=== PATIENT | female | born 1990 | race Caucasian/White ===

== ENCOUNTER 2016-10-03 00:29 | Emergency (ER) | payer MEDICAID ==
[~2016-10-03] VITALS: Ht 152.4 cm; Wt 50.5 kg
[2016-10-03 00:35] VITALS: Ht 152.4 cm; Wt 50.5 kg
[2016-10-03 02:15] LABS: URINE BLOOD (Dip) POC Negative (NEGATIVE)
--- NOTE | 2016-10-03 03:50 | RADRPT ---
PROCEDURE: ULTRASOUND PELVIS CLINICAL INDICATION: 25-year-old female with pelvic pain. TECHNIQUE: Multiple sonographic images of the pelvis were obtained utilizing a transabdominal and endovaginal technique. The images were reviewed on a PACS workstation. COMPARISON: None. FINDINGS: The uterus is visualized and measures 8.6 x 4.4 x 5.1 cm. The endometrial echo complex is thickened and heterogeneous measuring 22.4 mm. There is no evidence for free fluid. The right ovary has a norm al echotexture and measures 3.3 x 1.4 x 2.1 cm. The left ovary has a normal echotexture and measure s 3.5 x 2.3 x 2.6 cm. There is a left ovarian hemorrhagic cyst measuring 2.2 x 1.7 x 2.1 cm. There is flow identified within the ovaries bilaterally. No adnexal masses are noted. IMPRESSION: 1. Thickened heterogeneous endometrial echo complex. No sonographic evidence for an intrauterine g estation. If the patient has a positive test, an ectopic cannot be excluded. C linical correlation is necessary. 2. Left ovarian hemorrhagic cyst. .Toni Mendez MD, Date Time Electronically viewed and signed by .Toni Mendez MD, on 10/03/2016 03:49 .M/
--- NOTE | 2016-10-03 04:19 | RADRPT ---
PROCEDURE: ABDOMINAL - 3 VIEWS CLINICAL INDICATION: 25-year-old female with left-sided abdominal pain and constipation. TECHNIQUE: AP supine and upright views of the abdomen were obtained. The images reviewed on a LookStat workstation. COMPARISON: None. FINDINGS: The lung bases are unremarkable. There is no free air beneath the hemidiaphragms. There is air iden tified throughout the bowel. There is mild retained stool is seen within the colon. There is no ev idence for gross bowel obstruction. There are no abnormal calcifications overlying the urinary tract s. The osseous structures are unremarkable. IMPRESSION: Retained stool without gross bowel obstruction. .Toni Mendez MD, MD Date Time Electronically viewed and signed by .Toni Mendez MD, on 10/03/2016 04:18 .Yulissa/
[2016-10-03] MEDS ORDERED: NAPR-688 PO (04:47)
[2016-10-03] MEDS ORDERED: POLY17PO6 PO (04:47)
--- NOTE | 2016-10-03 04:54 | ERD ---
ER Documentation Chief Complaint Date/Time DATE: 10/03/16 TIME: 04:52 Chief Complaint lower abd pain x 1 week HPI This 25-year-old female presents with left lower quadrant abdominal pain for 1 week. She has had no dysuria or abnormal vaginal bleeding. She has had no fevers or chills. She is constipated. Otherwise healthy ROS All systems reviewed and are negative except as per history of present illness. Medications Home Meds Active Scripts Polyethylene Glycol* (Miralax*) 17 Gm Powd.pack, 17 GM PO DAILY, #7 Prov:CUCO CORTES DO 10/03/16 Naproxen* (Naproxen*) 500 Mg Tablet, 500 MG PO BID Y for PAIN, #20 TAB Prov:CUCO CORTES DO 10/03/16 Allergies Allergies: Coded Allergies: Penicillins (Verified Allergy, Unknown, 10/03/16) PMhx/Soc Medical and Surgical Hx: pt denies Medical Hx History of Surgery: Yes (appendectomy 2015) Anesthesia Reaction: No Hx Alcohol Use: No Hx Substance Use: No Hx Tobacco Use: No Smoking Status: Unknown if ever smoked Physical Exam Vitals Vital Signs Date Time Temp Pulse Resp B/P Pulse Ox O2 Delivery O2 Flow Rate FiO2 10/03/16 03:03 59 16 114/67 100 Room Air 10/03/16 00:35 98.6 69 20 115/56 98 Physical Exam Const: [] No distress Head: Atraumatic Eyes: Normal Conjunctiva Abd: Soft, mild left lower quadrant tenderness without guarding or rebound, non distended. Normal bowel sounds Skin: No petechiae or rashes Back: No midline or flank tenderness Ext: No cyanosis, or edema Neur: Awake and alert Psych: Normal Mood and Affect Results 24 hrs Laboratory Tests Test 10/03/16 02:17 Bedside Urine pH (LAB) 5.5 Bedside Urine Protein (LAB) Negative Bedside Urine Glucose (UA) Negative Bedside Urine Ketones (LAB) Negative Bedside Urine Blood Negative Bedside Urine Nitrite (LAB) Negative Bedside Urine Leukocyte Esterase (L Negative Procedures/MDM Left ovarian cysts as well as constipation. I have low concern for serious infectious process. Patient has negative urinalysis and is not . Does have hemorrhagic ovarian cyst on ultrasound as well as constipation confirmed with abdominal x-ray. Going to discharge with MiraLAX as well as naproxen and gynecological follow-up. She was given IM injection of Toradol emergency room which helped with her pain. Abdominal x-ray interpretation 2 view: I see no acute process. There is mild to moderate retained stool especially in the right colon and some stool left colon and transverse however I see no obstruction, no free air, no fractures Pelvic ultrasound interpretation: Left hemorrhagic ovarian cyst. Departure Diagnosis: Primary Impression: Constipation Additional Impression: Ovarian cyst, left Condition: Stable Patient Instructions: What Are Ovarian Cysts?, Constipation (Adult) Additional Instructions: Llame al doctor MAANA y gildardo ligia WILBER PARA DENTRO DE 2-3 [place].Dgale a la secretaria que nosotros le instruimos hacer esta wilber.Avise o llame si wagner condicin se empeora antes de la wilber. Regresa aqui si peor o no mejor. CUCO CORTES DO Oct 03, 2016 04:54
[2016-10-03 05:05] VITALS: BP 109/79; PULSE 77; RESP 18
== END 2016-10-03 05:06 | disposition home or self-care (01) ==
LOC: E/R 00:29
DX: K59.00 Constipation, unspecified (principal); N83.202 Unspecified ovarian cyst, left side; R10.2 Pelvic and perineal pain
CPT/HCPCS: 74010; 76830; 76856; 81003; Z7502

== ENCOUNTER 2018-04-17 10:05 | Emergency (ER) | payer MEDICAID ==
[~2018-04-17] VITALS: Ht 165.1 cm; Wt 54.2 kg
[~2018-04-17 10:05] MED LIST: NAPR-688 PO; POLY17PO6 PO
[2018-04-17 10:14] VITALS: Ht 165.1 cm; Wt 54.2 kg
--- NOTE | 2018-04-17 11:01 | ERD ---
ER Documentation Chief Complaint Chief Complaint Complains of abdominal pain and 8 weeks HPI 27-year-old female at EGA 6 weeks by first trimester ultrasound, with LMP 02/18/18. Presents to the emergency department, complaining of 1 day with acute onset of pelvic pain, constant, dull, 5/10. The patient denies any vaginal bleeding, no fever, no chills. The patient has a history of appendectomy. ROS All systems reviewed and are negative except as per history of present illness. Medications Home Meds Active Scripts Polyethylene Glycol* (Miralax*) 17 Gm Powd.pack, 17 GM PO DAILY, #7 Prov:CUCO CORTES DO 10/03/16 Naproxen* (Naproxen*) 500 Mg Tablet, 500 MG PO BID PRN for PAIN, #20 TAB Prov:CUCO CORTES DO 10/03/16 Allergies Allergies: Coded Allergies: Penicillins (Verified Allergy, Unknown, 10/03/16) PMhx/Soc History of Surgery: Yes (appendectomy 2014) Anesthesia Reaction: No Hx Alcohol Use: No Hx Substance Use: No Hx Tobacco Use: No Smoking Status: Never smoker Physical Exam Vitals Vital Signs Date Temp Pulse Resp B/P (MAP) Pulse Ox O2 O2 Flow FiO2 Time Delivery Rate 04/17/18 98.0 65 20 113/57 97 10:14 (75) Physical Exam Const: No acute distress Head: Atraumatic Eyes: Normal Conjunctiva ENT: Normal External Ears, Nose and Mouth. Neck: Full range of motion. No meningismus. Resp: Clear to auscultation bilaterally Cardio: Regular rate and rhythm, no murmurs Abd: Soft, non tender, non distended. Normal bowel sounds Skin: No petechiae or rashes Back: No midline or flank tenderness Ext: No cyanosis, or edema Neur: Awake and alert Psych: Normal Mood and Affect Result Diagram: 04/17/18 1118 Results 24 hrs Laboratory Tests Test 04/17/18 11:16 04/17/18 11:17 04/17/18 11:18 Bedside Urine pH (LAB) 8.0 Bedside Urine Protein (LAB) Negative Bedside Urine Glucose (UA) Negative Bedside Urine Ketones (LAB) Negative Bedside Urine Blood Negative Bedside Urine Nitrite (LAB) Negative Bedside Urine Leukocyte Esterase (L Negative POC Beta HCG, Qualitative POSITIVE White Blood Count 9.8 10^3/ul Red Blood Count 4.37 10^6/ul Hemoglobin 13.3 g/dl Hematocrit 39.2 % Mean Corpuscular Volume 89.7 fl Mean Corpuscular Hemoglobin 30.4 pg Mean Corpuscular Hemoglobin Concent 33.9 g/dl Red Cell Distribution Width 12.1 % Platelet Count 328 10^3/UL Mean Platelet Volume 9.9 fl Immature Granulocytes % 0.400 % Neutrophils % 65.2 % Lymphocytes % 25.5 % Monocytes % 8.0 % Eosinophils % 0.5 % Basophils % 0.4 % Nucleated Red Blood Cells % 0.0 /100WBC Immature Granulocytes # 0.040 10^3/ul Neutrophils # 6.4 10^3/ul Lymphocytes # 2.5 10^3/ul Monocytes # 0.8 10^3/ul Eosinophils # 0.1 10^3/ul Basophils # 0.0 10^3/ul Nucleated Red Blood Cells # 0.0 10^3/ul Current Medications Medications Dose Sig/Nathan Start Time Status Last (Trade) Ordered Route PRN Stop Time Admin Dose Reason Admin 650 mg ONCE ONCE 04/17/18 DC 04/17/18 Acetaminophen PO 11:30 04/17/18 11:18 (Tylenol 11:31 Tab) DIAGNOSTIC IMAGING REPORT Patient: KHANG VICK : 1990 Age: 27 Sex: F MR #: [id number] DOS: 04/17/18 1101 Ordering MD: FRANCHESCA SOTO MD Location: [facility] Room/Bed: PROCEDURE: US OB. CLINICAL INDICATION: Pelvic pain TECHNIQUE: Transabdominal views of the pelvis are available for review. COMPARISON: No prior studies are available for comparison. FINDINGS: There is a single intrauterine gestation with the crown-rump length measuring 1.0 cm, corresponding to a gestational age of 7 weeks and 1 day. The heart rate is noted at 173 bpm. The ovaries are normal in size and echogenicity. Normal Doppler flow is identified in both ovaries. The right ovary measures 3.3 x 2.3 cm. The left ovary measures 3.7 x 2.8 x 3.4 cm. There is a 2.2 cm simple cyst in the left ovary. There is no free fluid. RPTAT: AA IMPRESSION: Single live intrauterine with an estimated gestational age of 7 weeks and 1 day, based on ultrasound measurements. .Qamar Mendoza MD, Date Time Electronically viewed and signed by .Qamar Mendoza MD, MD on 04/17/2018 12:14 .S/ CC: FRANCHESCA SOTO MD [id number] Procedures/MDM Vital signs stable, Physical exam unremarkable. Differential diagnosis include but not limited to: UTI, threatening , incomplete versus complete , ectopic , physiologic implantation bleeding, molar . Physical examination and clinical presentation most likely consistent with pelvic pain during a viable 7 weeks . Low suspicion for acute abdomen During the ED course the patient remained hemodynamically stable and asymptomatic. Results and clinical impression discussed with patient who agrees with management. The patient is stable to be treated outpatient and will be discharged home with close monitoring and follow-up in 2 days with her primary physician. The patient was instructed regarding the outcomes and the potential complications like severe bleeding and . If the patient presents severe bleeding or pain, she was instructed to return to the hospital immediately. Disclaimer: Inadvertent spelling and grammatical errors are likely due to EHR/dictation software use and do not reflect on the overall quality of patient care. Also, please note that the electronic time recorded on this note does not necessarily reflect the actual time of the patient encounter. Departure Diagnosis: Primary Impression: Pelvic pain affecting in first trimester, antepartum Additional Impression: with 7 completed weeks gestation Condition: Stable Additional Instructions: Muchas wilner por [facility] para wagner servicio. Esperamos que en wagner visita a la natalio de emergencia wagner problema medico haya sido solucionado y que se sienta mucho mejor. Para estar seguros que wagner mejoria sigue en proceso, le pedimos el favor de hacer ligia josé luis de seguimiento medico con wagner doctor primario en los proximos 2-4 blair. Lleve con usted estos documentos y las medicinas recetadas. Si alexa sintomas empeoran, NO SE ESPERE, por favor regrese a natalio de emergencia INMEDIATAMENTE. En ursula que usted no tenga un mdico de atencin primaria: Llame al mdico o clnica comunitaria de referencia que aparece abajo fabiola las horas de consultorio para hacer ligia josé luis para que le vean. CLINICAS: [facility] [phone] [facility] [phone] [facility] [phone] [facility] [phone] [facility] [phone] [facility]. [phone] FRANCHESCA WISDOM MD Apr 17, 2018 11:01
[2018-04-17] MEDS ORDERED: ACETAMINOPHEN 325 MG TAB PO ONE (11:30)
== END 2018-04-17 12:47 | disposition home or self-care (01) ==
LOC: FTE 10:05
DX: O26.891 Other specified pregnancy related conditions, first trimester (principal); R10.2 Pelvic and perineal pain; Z3A.01 Less than 8 weeks gestation of pregnancy
CPT/HCPCS: 76801; 76817; 81003; 81025; 84702; 85025; Z7502; Z7610

== ENCOUNTER 2018-06-13 01:40 | Emergency (ER) | payer MEDICAID ==
[~2018-06-13] VITALS: Wt 53.2 kg
[2018-06-13] MEDS ORDERED: SOD CHLORIDE 0.9% 1,000 ML IV STA (02:17)
[2018-06-13] MEDS ORDERED: ACET500C5 PO (05:05)
[2018-06-13 05:14] VITALS: BP 114/59; PULSE 98; RESP 16
--- NOTE | 2018-06-13 05:14 | ERD ---
ER Documentation Chief Complaint Chief Complaint CP, SOB, WEAKNESS, AP SINCE 10PM HPI 27-year-old female here with complaints of cough shortness of breath weakness abdominal pain since 10 PM. She said she is been fighting off a "cold "for the past week. Denies any sick contacts. Denies any abdominal pain. Denies any vaginal bleeding. ROS All systems reviewed and are negative except as per history of present illness. Medications Home Meds Active Scripts Acetaminophen* (Tylophen*) 500 Mg Capsule, 1 CAP PO Q6H PRN for PAIN AND OR ELEVATED TEMP, #20 CAP Prov:MICHELLE BOOTHChrista 06/13/18 Polyethylene Glycol* (Miralax*) 17 Gm Powd.pack, 17 GM PO DAILY, #7 Prov:CUCO CORTES DO 10/03/16 Naproxen* (Naproxen*) 500 Mg Tablet, 500 MG PO BID PRN for PAIN, #20 TAB Prov:CUCO CORTES DO 10/03/16 Allergies Allergies: Coded Allergies: Penicillins (Verified Allergy, Unknown, 10/03/16) PMhx/Soc History of Surgery: Yes (appendectomy 2015) Anesthesia Reaction: No Hx Neurological Disorder: No Hx Respiratory Disorders: No Hx Cardiac Disorders: No Hx Psychiatric Problems: No Hx Miscellaneous Medical Probl: No Hx Alcohol Use: No Hx Substance Use: No Hx Tobacco Use: No Smoking Status: Never smoker Physical Exam Vitals Vital Signs Date Temp Pulse Resp B/P (MAP) Pulse Ox O2 O2 Flow FiO2 Time Delivery Rate 06/13/18 99.8 102 20 117/70 96 01:45 (86) Physical Exam Const: No acute distress Head: Atraumatic Eyes: Normal Conjunctiva ENT: Normal External Ears, Nose and Mouth. Neck: Full range of motion. No meningismus. Resp: Clear to auscultation bilaterally Cardio: Regular rate and rhythm, no murmurs Abd: Soft, non tender, non distended. Normal bowel sounds Skin: No petechiae or rashes Back: No midline or flank tenderness Ext: No cyanosis, or edema Neur: Awake and alert Psych: Normal Mood and Affect Result Diagram: 06/13/18 0259 06/13/18 0259 Results 24 hrs Laboratory Tests Test 06/13/18 02:59 White Blood Count 14.9 10^3/ul Red Blood Count 3.72 10^6/ul Hemoglobin 11.4 g/dl Hematocrit 33.0 % Mean Corpuscular Volume 88.7 fl Mean Corpuscular Hemoglobin 30.6 pg Mean Corpuscular Hemoglobin Concent 34.5 g/dl Red Cell Distribution Width 12.9 % Platelet Count 275 10^3/UL Mean Platelet Volume 10.5 fl Immature Granulocytes % 1.000 % Neutrophils % 80.9 % Lymphocytes % 9.4 % Monocytes % 8.3 % Eosinophils % 0.1 % Basophils % 0.3 % Nucleated Red Blood Cells % 0.0 /100WBC Immature Granulocytes # 0.150 10^3/ul Neutrophils # 12.0 10^3/ul Lymphocytes # 1.4 10^3/ul Monocytes # 1.2 10^3/ul Eosinophils # 0.0 10^3/ul Basophils # 0.1 10^3/ul Nucleated Red Blood Cells # 0.0 10^3/ul Urine Color YELLOW Urine Clarity SLIGHTLY CLOUDY Urine pH 8.0 Urine Specific [place] 1.005 Urine Ketones 1+ mg/dL Urine Nitrite NEGATIVE mg/dL Urine Bilirubin NEGATIVE mg/dL Urine Urobilinogen NEGATIVE mg/dL Urine Leukocyte Esterase NEGATIVE Ashok/ul Urine Microscopic RBC 1 /HPF Urine Microscopic WBC 3 /HPF Urine Squamous Epithelial Cells FEW /HPF Urine Hemoglobin NEGATIVE mg/dL Urine Glucose NEGATIVE mg/dL Urine Total Protein NEGATIVE mg/dl Sodium Level 138 mmol/L Potassium Level 3.2 mmol/L Chloride Level 107 mmol/L Carbon Dioxide Level 21 mmol/L Anion Gap 10 Blood Urea Nitrogen 3 mg/dl Creatinine 0.35 mg/dl Est Glomerular Filtrat Rate mL/min > 60 mL/min Glucose Level 101 mg/dl Calcium Level 9.5 mg/dl Total Bilirubin 0.3 mg/dl Direct Bilirubin 0.00 mg/dl Indirect Bilirubin 0.3 mg/dl Aspartate Amino Transf (AST/SGOT) 27 IU/L Alanine Aminotransferase (ALT/SGPT) 36 IU/L Alkaline Phosphatase 87 IU/L Troponin I < 0.012 ng/ml Total Protein 6.7 g/dl Albumin 3.7 g/dl Globulin 3.00 g/dl Albumin/Globulin Ratio 1.23 Beta HCG, Quantitative 21659.0 mIU/ml Current Medications Medications Dose Sig/Nathan Start Time Status Last (Trade) Ordered Route PRN Stop Time Admin Dose Reason Admin Sodium 1,000 ml @ Q1H STAT 06/13/18 DC 06/13/18 Chloride 1,000 mls/hr IV 02:17 06/13/18 03:06 03:16 Procedures/MDM EKG: Rate/Rhythm: [Normal Sinus Rhythm] QRS, ST, T-waves: [No changes consistent w/ acute ischemia] Impression: [No evidence of ischemia or arrhythmia] Medical decision makin-year-old female who looks to be a viral syndrome. At this point she is clinically stable and feels much better. She is stable for outpatient management. Patient will be discharged home and told to follow with primary care physician. Return for worsening symptoms. Departure Diagnosis: Primary Impression: Viral syndrome Condition: Stable Patient Instructions: Viral Syndrome (Adult) MICHELLE BOOTH Jun 13, 2018 05:14
== END 2018-06-13 05:16 | disposition home or self-care (01) ==
LOC: E/R 01:40
DX: O99.89 Other specified diseases and conditions complicating pregnancy, childbirth and the puerperium (principal); B34.9 Viral infection, unspecified; R10.9 Unspecified abdominal pain; Z3A.16 16 weeks gestation of pregnancy
CPT/HCPCS: 36415; 76801; 80053; 81001; 84484; 84702; 85025; 86900; 86901; 87086; 93005; 96360; J7030; Z7502; 81003

== ENCOUNTER → 2018-08-02 | Outpatient (CLI) | payer MEDICAID ==
[~2018-08-02] MED LIST changes: +ACET500C5 PO
== END | disposition home or self-care (01) ==
LOC: RAD 11:23
PROVIDERS: ATTEND Obstetrics & Gynecology
DX: R76.11 Nonspecific reaction to tuberculin skin test without active tuberculosis (principal)
CPT/HCPCS: 71046

== ENCOUNTER 2018-08-31 10:37 | Outpatient (CLI) | payer MEDICAID ==
[~2018-08-31] VITALS: Ht 144.8 cm; Wt 58.3 kg
[2018-08-31 11:12] VITALS: BP 95/53; PULSE 71; RESP 18; Ht 144.8 cm; Wt 58.3 kg
--- NOTE | 2018-09-18 16:58 | PN ---
Triage Information Date/Time Reason for visit: Back pain Weeks of Gestation 27-week and 1 day /Para G1 Diabetes: none Objective Heart Rate: 140's Contractions: None Disposition: Discharge Assessment/Plan 27 years old 1 with single intrauterine at 27 weeks and 1 day with a JOSE of 11/29/2018 complaining of pelvic and flank pain. She states good movement. She denies nausea, vomiting, shortness of breath, chest pain, headache, visual changes, vaginal bleeding or LOF. -FHR: No sign of metabolic acidosis- Category I -Contractions: None -Ultrasound performed: Normal MATILDA, BPP 8 out of 8 -Urinalysis performed which was abnormal, urine culture ordered. Rocephin 1 g IM given. Macrobid 100 mg twice daily for 7 days given. I strongly recommend increase fluid intake and have follow-up with her primary OB in 3 days to review the urine culture results. -Symptoms and sign of labor, preeclampsia, kick count discussed with patient, she voiced understanding. All of her questions answered. -Patient was discharged home in stable condition with the appropriate discharge instructions provided. I would like patient to have close follow-up with her primary physician or outpatient clinic in 1-2 days or return to triage for worsening symptoms or any other urgent concerns. ABIGAIL VILLATORO Sep 18, 2018 16:58
== END 2018-08-31 12:54 | disposition home or self-care (01) ==
LOC: OBT 10:37 → L-D 10:38 → OBT 12:54
PROVIDERS: ATTEND Obstetrics & Gynecology
DX: O26.892 Other specified pregnancy related conditions, second trimester (principal); Z3A.27 27 weeks gestation of pregnancy
CPT/HCPCS: 76818; 81001; 87086; Z7500; G0463

== ENCOUNTER 2018-09-13 14:30 | Outpatient (CLI) | payer MEDICAID ==
[~2018-09-13] VITALS: Ht 142.2 cm; Wt 59.3 kg
[2018-09-13 14:45] VITALS: BP 107/60; PULSE 65; RESP 18; Ht 142.2 cm; Wt 59.3 kg
--- NOTE | 2018-09-13 17:49 | TRIAGE ---
OB Triage Datetime Report Generated by CPN: 09/13/2018 17:49 Datetime: 09/13/2018 17:35 Monitor Mode: External Resting Tone [place]: Relaxed Heart Rate FHR Baseline Rate: 150 Monitor Mode: External US FHR Baseline Changes: No Baseline Change Variability: Minimal - Undetectable to <=5 bpm Accelerations: 15X15 Decelerations: None Category: Category I Comments: Appropriate for GA. Pain Presence: None/Denies Datetime: 09/13/2018 16:24 Stage of : OB Triage Labor Evaluation Frequency: none Pattern: Normal: <= 5 Contractions in 10 Minutes Resting Tone [place]: Relaxed Heart Rate FHR Baseline Rate: 145 Monitor Mode: External US FHR Baseline Changes: No Baseline Change Variability: Moderate 6-25 bpm Accelerations: 15X15 Decelerations: None Category: Category I Pain Presence: None/Denies Vaginal Exam Membrane Status: Intact Datetime: 09/13/2018 15:55 Stage of : OB Triage Labor Evaluation Frequency: none Pattern: Normal: <= 5 Contractions in 10 Minutes Heart Rate FHR Baseline Rate: 140 Monitor Mode: External US FHR Baseline Changes: No Baseline Change Variability: Moderate 6-25 bpm Accelerations: 15X15 Decelerations: None Category: Category I Pain Presence: None/Denies Vaginal Exam Membrane Status: Intact Datetime: 09/13/2018 15:10 Headache: Denies Blurred Vision: No RUQ Epigastric Pain: Denies Facial Edema: None Labor Evaluation Frequency: occ Duration (sec)2399: mild Quality: Mild Pattern: Normal: <= 5 Contractions in 10 Minutes Resting Tone [place]: Relaxed Heart Rate FHR Baseline Rate: 140 Monitor Mode: External US FHR Baseline Changes: No Baseline Change Variability: Moderate 6-25 bpm Accelerations: 15X15 Decelerations: None Category: Category I Comments: voiced feeling her baby move at this time Vaginal Exam Membrane Status: Intact Datetime: 09/13/2018 14:41 Time of Arrival: 09/13/2018 14:41 EGA: 29.0 Arrived By: Ambulatory Arrived From: Home Chief Complaint: not feeling her baby move since 0800 Movement: Present Contractions: Denies/Absent Rupture of Membranes: Denies Vaginal Discharge: Denies Recent Sexual Intercouse: Denies Abdominal Trauma: Not Applicable Patient Complaints: Other Additional Patient Complaints: denies leaking of water, denies contractions Time Provider Notified: 09/13/2018 15:00 Provider Notified: Dr Richard Initial Plan: EFM/ U/s/ cervical length Datetime: 09/13/2018 14:40 Stage of : OB Triage Maternal Assessment Level of Consciousness: Fully Conscious DTR's/Clonus: DTRs 2+; No Clonus Headache: Denies Blurred Vision: No Respiratory Effort: Unlabored; Regular Rhythm; Equal Expansion Breath Sounds, Left: Clear and Equal Breath Sounds, Right: Clear and Equal Nausea/Vomiting: Denies RUQ Epigastric Pain: Denies Lower Extremities Edema: None Degree: None Upper Extremities Edema: None Degree: None Facial Edema: None Temperature Route: Oral Fall Risk Assessment History of Falling: (0) No Secondary Diagnosis: (0) No Ambulatory Aid: (0) Bedrest/Nurse Assist IV Therapy: (0) No Gait: (0) Normal/Bedrest/Immobile Mental Status: (0) Oriented to Own Ability Fall Score: 0 Fall Risk Score Definition: No Risk: No action required Labor Evaluation Frequency: none Monitor Mode: External Heart Rate FHR Baseline Rate: 140 Monitor Mode: External US Pain Assessment Pain Scale: 0 Datetime: 08/31/2018 12:03 Stage of : OB Triage Labor Evaluation Frequency: 0 Monitor Mode: External Pattern: Normal: <= 5 Contractions in 10 Minutes Resting Tone [place]: Relaxed Heart Rate FHR Baseline Rate: 145 Monitor Mode: External US Variability: Moderate 6-25 bpm Accelerations: 15X15 Decelerations: None Category: Category I Pain Presence: None/Denies Pain Type: N/A Datetime: 08/31/2018 11:07 Stage of : OB Triage Maternal Assessment Level of Consciousness: Fully Conscious DTR's/Clonus: DTRs 2+; No Clonus Headache: Denies Blurred Vision: No Respiratory Effort: Unlabored; Regular Rhythm; Equal Expansion Breath Sounds, Left: Clear and Equal Breath Sounds, Right: Clear and Equal Nausea/Vomiting: Denies RUQ Epigastric Pain: Denies Lower Extremities Edema: None Degree: None Upper Extremities Edema: None Degree: None Facial Edema: None Temperature Route: Oral Fall Risk Assessment History of Falling: (0) No Secondary Diagnosis: (0) No Ambulatory Aid: (0) Bedrest/Nurse Assist IV Therapy: (0) No Gait: (0) Normal/Bedrest/Immobile Mental Status: (0) Oriented to Own Ability Fall Score: 0 Fall Risk Score Definition: No Risk: No action required Monitor Mode: External Heart Rate FHR Baseline Rate: 140 Monitor Mode: External US Pain Assessment Pain Scale: 6 Pain Presence: Intermittent Pain Type: Cramping; Sharp Pain Location: Back Datetime: 08/31/2018 11:05 Time of Arrival: 08/31/2018 11:05 EGA: 27.1 Arrived By: Ambulatory Arrived From: Home Chief Complaint: flank pain both side Movement: Present Contractions: Denies/Absent Rupture of Membranes: Denies Vaginal Bleeding: None Vaginal Discharge: Denies Recent Sexual Intercouse: Denies Abdominal Trauma: Not Applicable Patient Complaints: Back Pain Initial Plan: efm/ ua/ u/s
[2018-09-13] MEDS ORDERED: PREN-6 PO (17:50)
--- NOTE | 2018-09-13 18:12 | PN ---
Triage Information Date/Time Reason for visit: Uterine contractions Weeks of Gestation 29+ /Para n/a Diabetes: none Hypertention: none Objective Vital Signs Date Temp Pulse Resp B/P (MAP) Pulse Ox O2 O2 Flow FiO2 Time Delivery Rate 09/13/18 98.1 65 18 107/60 99 Room Air 14:45 (76) Contractions: None Results/Medications Results 24 hrs Laboratory Tests Test 09/13/18 14:50 Urine Color STRAW Urine Clarity CLEAR Urine pH 8.0 Urine Specific [place] 1.003 Urine Ketones NEGATIVE Urine Nitrite NEGATIVE Urine Bilirubin NEGATIVE Urine Urobilinogen NEGATIVE Urine Leukocyte Esterase NEGATIVE Urine Hemoglobin NEGATIVE Urine Glucose NEGATIVE Urine Total Protein NEGATIVE Disposition: Discharge Assessment/Plan CXL WNL BPP 01/19 +FM --->Discharged with precautions -->Questions answered --->precautions discussed --->Follow up with provider YESSI MOREL M.D. Sep 13, 2018 18:12
== END 2018-09-13 17:57 | disposition home or self-care (01) ==
LOC: L-D 14:30 → OBT 14:30
PROVIDERS: ATTEND Obstetrics & Gynecology
DX: O62.9 Abnormality of forces of labor, unspecified (principal); Z3A.29 29 weeks gestation of pregnancy
CPT/HCPCS: 76817; 76818; 81003; 87086; Z7500; G0463

== ENCOUNTER 2018-11-23 11:48 | Inpatient (IN) | payer MEDICAID ==
[~2018-11-23] VITALS: Ht 142.2 cm; Wt 67.9 kg
[~2018-11-23 11:48] MED LIST changes: -ACET500C5 PO; +ALBU18HF INHALATION; +LEVO750T25 PO; -NAPR-688 PO; -POLY17PO6 PO; +PREN-6 PO
[2018-11-23 12:20] VITALS: Ht 142.2 cm; Wt 67.9 kg
[2018-11-23 12:21] VITALS: BP 138/62; PULSE 61; RESP 16
[2018-11-23] MEDS ORDERED: METHYLERGONOVINE 0.2 MG INJ IM PRN (13:30)
[2018-11-23] MEDS ORDERED: MISOPROSTOL 200 MCG TAB PR PRN (13:30)
[2018-11-23] MEDS ORDERED: LIDOCAINE 1% (MPF) 30 ML INJ INJ PRN (13:30)
[2018-11-23] MEDS ORDERED: CARBOPROST 250 MCG INJ IM PRN (13:30)
[2018-11-23] MEDS ORDERED: BUTORPHANOL 2 MG INJ IV PRN (13:30)
[2018-11-23] MEDS ORDERED: OXYTOCIN 30 UNITS/LR 500 ML IV SCH ×2 (13:30)
[2018-11-23] MEDS ORDERED: OXYTOCIN 30 UNITS/LR 500 ML IV PRN (13:30)
[2018-11-23] MEDS ORDERED: MINERAL OIL LIGHT 10 ML VIAL TOP PRN (14:00)
[2018-11-23] MEDS: LACTATED RINGER'S 1,000 ML IV SCH ×2 (15:58→22:12)
[2018-11-23] MEDS: MISOPROSTOL 50 MCG CAPSULE PO SCH ×2 (16:30→20:57)
[2018-11-24] MEDS: CLINDAMYCIN 600 MG/D5W (PMX) 50 ML IVPB SCH ×4 (00:31→20:01)
[2018-11-24] MEDS: MISOPROSTOL 50 MCG CAPSULE PO SCH ×6 (03:53→19:26)
[2018-11-24] MEDS: LACTATED RINGER'S 1,000 ML IV SCH ×3 (06:56→22:24)
[2018-11-24] MEDS ORDERED: CLINDAMYCIN 900 MG IVPB ONE (13:04)
[2018-11-24] MEDS: OXYTOCIN 30 UNITS/LR 500 ML IV SCH (23:33)
[2018-11-25] MEDS: CLINDAMYCIN 600 MG/D5W (PMX) 50 ML IVPB SCH ×4 (04:05→21:54)
[2018-11-25] MEDS: LACTATED RINGER'S 1,000 ML IV SCH ×2 (06:46→18:43)
[2018-11-25] MEDS: LACTATED RINGER'S 1,000 ML IV PRN (14:21)
[2018-11-25] MEDS ORDERED: FENTAnyl 2MCG/ML-ROPIV 0.2% 100 ML ONE (14:41)
[2018-11-25] MEDS ORDERED: ONDANSETRON 4 MG INJ IV PRN (15:00)
[2018-11-25] MEDS ORDERED: DIPHENHYDRAMINE 50 MG INJ IV PRN (15:00)
[2018-11-25] MEDS ORDERED: NALOXONE (0.4 MG/ML) INJ IV PRN (15:00)
[2018-11-25] MEDS: FENTAnyl 2MCG/ML-ROPIV 0.2% 100 ML BAG EPI SCH (22:57)
[2018-11-26] MEDS: LACTATED RINGER'S 1,000 ML IV SCH ×2 (04:00→10:05)
[2018-11-26] MEDS: CLINDAMYCIN 600 MG/D5W (PMX) 50 ML IVPB SCH ×4 (04:00→18:00)
[2018-11-26] MEDS: FENTAnyl 2MCG/ML-ROPIV 0.2% 100 ML BAG EPI SCH ×3 (05:23→18:33)
[2018-11-26] MEDS: OXYTOCIN 30 UNITS/LR 500 ML IV SCH (16:11)
[2018-11-26] MEDS: LACTATED RINGER'S 1,000 ML IV PRN (19:26)
[2018-11-26] MEDS ORDERED: AZITHROMYCIN 500MG/NS (PMX) 250 ML IV SCH (19:30)
[2018-11-26] MEDS ORDERED: LIDOCAINE 2% (SDV) 5 ML INJ ONE ×2 (19:51→20:49)
[2018-11-26] MEDS ORDERED: ONDANSETRON 4 MG INJ ONE (19:57)
[2018-11-26] MEDS ORDERED: OXYTOCIN 10 UNIT INJ ONE ×2 (20:12→20:33)
[2018-11-26] MEDS ORDERED: METOCLOPRAMIDE 10 MG INJ ONE (20:12)
[2018-11-26] MEDS ORDERED: FENTAnyl 50 MCG/ML VIAL ONE (20:18)
[2018-11-26] MEDS ORDERED: MIDAZOLAM 1 MG/ML 2 ML INJ ONE ×2 (20:18)
[2018-11-26] MEDS ORDERED: LACTATED RINGER'S 1,000 ML IV ONE (20:31)
[2018-11-26] MEDS ORDERED: morphine SULFATE/PF (10 MG/10 ML) INJ ONE (20:34)
[2018-11-26] MEDS ORDERED: KETAMINE (50 MG/ML) 10 ML VIAL ONE (20:51)
[2018-11-26] MEDS ORDERED: ZOLPIDEM 5 MG TAB PO PRN (21:00)
[2018-11-26] MEDS ORDERED: HYDROmorphONE 0.5 MG/0.5 ML SYG IV PRN ×2 (21:00)
[2018-11-26] MEDS ORDERED: MEPERIDINE 25 MG INJ IV PRN (21:00)
[2018-11-26] MEDS ORDERED: NALBUPHINE HCL (10 MG/1 ML) INJ IV PRN (21:00)
[2018-11-26] MEDS ORDERED: NALOXONE (0.4 MG/ML) INJ IV PRN (21:00)
[2018-11-26] MEDS ORDERED: ONDANSETRON 4 MG INJ IV PRN (21:00)
[2018-11-26] MEDS ORDERED: DIPHENHYDRAMINE 50 MG INJ IV PRN ×2 (21:00)
[2018-11-26] MEDS ORDERED: ONDANSETRON 4 MG INJ IV ONE (21:00)
[2018-11-26] MEDS ORDERED: MIDAZOLAM 1 MG/ML 2 ML INJ IV PRN (21:00)
[2018-11-26] MEDS ORDERED: OXYTOCIN IV ONE (21:11)
[2018-11-26] MEDS ORDERED: LR IV ONE (21:11)
[2018-11-26] MEDS ORDERED: LACTATED RINGER'S 1,000 ML IV SCH (23:46)
[2018-11-27] VITALS (8 sets, daily range): BP systolic 101–138; BP diastolic 54–84; PULSE 84–116; RESP 16–20
[2018-11-27] MEDS ORDERED: LANOLIN HPA 1 PKT TOP PRN
[2018-11-27] MEDS ORDERED: METHYLERGONOVINE 0.2 MG INJ IM PRN
[2018-11-27] MEDS ORDERED: ZOLPIDEM 5 MG TAB PO PRN
[2018-11-27] MEDS ORDERED: MISOPROSTOL 200 MCG TAB PR PRN
[2018-11-27] MEDS ORDERED: CARBOPROST 250 MCG INJ IM PRN
[2018-11-27] MEDS ORDERED: OXYTOCIN 30 UNITS/LR 500 ML IV PRN
[2018-11-27] MEDS ORDERED: ONDANSETRON 4 MG INJ IV PRN
[2018-11-27] MEDS ORDERED: DIPHENHYDRAMINE 50 MG INJ IV PRN
[2018-11-27] MEDS: KETOROLAC 30 MG INJ IV PRN ×3 (04:35→17:50)
[2018-11-27] MEDS: SENNA/DOCUSATE NA (8.6MG/50MG) TAB PO SCH ×2 (08:56→21:00)
[2018-11-27] MEDS: LACTATED RINGER'S 1,000 ML IV SCH ×2 (10:56→23:00)
[2018-11-27] MEDS ORDERED: IPRATROPIUM (NEB) 0.5 MG/2.5 ML AMP HHN PRN ×2 (17:30→22:00)
[2018-11-27] MEDS ORDERED: LEVALBUTEROL (NEB) 0.63 MG/3 ML AMP HHN PRN ×2 (17:30→22:00)
[2018-11-27] MEDS ORDERED: CEFTRIAXONE 1 GM/50 ML (PMX) 50 ML IVPB SCH (18:00)
[2018-11-27] MEDS ORDERED: IOHEXOL 100 ML ONE (20:03)
[2018-11-27] MEDS ORDERED: SOD CHLORIDE 0.9% 100 ML ONE (20:03)
[2018-11-27] MEDS: IPRATROPIUM (NEB) 0.5 MG/2.5 ML AMP HHN SCH (20:25)
[2018-11-27] MEDS: BUDESONIDE (NEB) 0.5MG/2ML AMP HHN SCH (20:25)
[2018-11-27] MEDS: LEVALBUTEROL (NEB) 1.25 MG/0.5 ML AMP HHN SCH (20:25)
[2018-11-27] MEDS ORDERED: ALBUTEROL/IPRATROPIUM (NEB) 3 ML AMP HHN SCH (21:00)
[2018-11-27] MEDS ORDERED: metroNIDAZOLE 500 MG/NS (PMX) 100 ML IVPB SCH (22:00)
[2018-11-27] MEDS ORDERED: FUROSEMIDE 20 MG TAB PO ONE (22:30)
[2018-11-27] MEDS: MEROPENEM 1 GM/50ML(PMX) 50 ML IVPB SCH (22:56)
[2018-11-27] MEDS: OXYCODONE/ACETAMINOPHEN (5/325) TAB PO PRN (23:14)
[2018-11-28 04:00] VITALS: BP 129/70; PULSE 71; RESP 19
[2018-11-28] MEDS: IBUPROFEN 600 MG TAB PO SCH ×4 (06:02→17:36)
[2018-11-28] MEDS: MEROPENEM 1 GM/50ML(PMX) 50 ML IVPB SCH ×3 (06:02→22:09)
[2018-11-28] MEDS: LACTATED RINGER'S 1,000 ML IV SCH ×3 (07:00→23:00)
[2018-11-28 08:00] VITALS: BP 110/56; PULSE 69; RESP 18
[2018-11-28] MEDS: IPRATROPIUM (NEB) 0.5 MG/2.5 ML AMP HHN SCH ×3 (08:15→19:43)
[2018-11-28] MEDS: LEVALBUTEROL (NEB) 1.25 MG/0.5 ML AMP HHN SCH ×3 (08:15→19:43)
[2018-11-28] MEDS: BUDESONIDE (NEB) 0.5MG/2ML AMP HHN SCH ×2 (08:15→19:53)
[2018-11-28] MEDS: SENNA/DOCUSATE NA (8.6MG/50MG) TAB PO SCH ×2 (09:00→21:35)
[2018-11-28] MEDS: OXYCODONE/ACETAMINOPHEN (5/325) TAB PO PRN ×3 (09:13→22:27)
[2018-11-28 11:42] VITALS: BP 114/64; PULSE 75; RESP 17
[2018-11-28 16:00] VITALS: BP 116/66; PULSE 70; RESP 18
[2018-11-28 20:25] VITALS: BP 118/58; PULSE 80; RESP 18
[2018-11-29] VITALS: BP 125/59; PULSE 78; RESP 18
[2018-11-29] MEDS: IBUPROFEN 600 MG TAB PO SCH ×5 (00:31→23:43)
[2018-11-29 04:00] VITALS: BP 133/64; PULSE 76; RESP 18
[2018-11-29] MEDS: MEROPENEM 1 GM/50ML(PMX) 50 ML IVPB SCH ×3 (05:57→22:01)
[2018-11-29] MEDS: LACTATED RINGER'S 1,000 ML IV SCH ×3 (07:00→23:00)
[2018-11-29 08:00] VITALS: BP 120/68; PULSE 72; RESP 17
[2018-11-29] MEDS: OXYCODONE/ACETAMINOPHEN (5/325) TAB PO PRN (08:29)
[2018-11-29] MEDS ORDERED: DIPHTH/TET/ACEL PERTUSS (ADULT) 0.5 ML VIAL IM* ONE (09:00)
[2018-11-29] MEDS: SENNA/DOCUSATE NA (8.6MG/50MG) TAB PO SCH ×2 (09:00→22:01)
[2018-11-29] MEDS: IPRATROPIUM (NEB) 0.5 MG/2.5 ML AMP HHN SCH ×3 (10:15→20:19)
[2018-11-29] MEDS: LEVALBUTEROL (NEB) 1.25 MG/0.5 ML AMP HHN SCH ×3 (10:16→20:19)
[2018-11-29] MEDS: BUDESONIDE (NEB) 0.5MG/2ML AMP HHN SCH ×2 (10:16→20:18)
[2018-11-29] MEDS ORDERED: POTASSIUM CHLORIDE (SR) 20 MEQ TAB PO STA (10:44)
[2018-11-29] MEDS: MAGNESIUM OXIDE 400 MG TAB PO SCH ×2 (11:39→22:01)
[2018-11-29] MEDS ORDERED: POTASSIUM CHLORIDE (SR) 20 MEQ TAB PO SCH (14:30)
[2018-11-29 16:05] VITALS: BP 124/80; PULSE 75; RESP 16
[2018-11-29 20:15] VITALS: BP 143/73; PULSE 81; RESP 19
[2018-11-29] MEDS: FERROUS GLUCONATE (EC) 325 MG TAB PO SCH (22:01)
[2018-11-30 04:00] VITALS: BP 127/68; PULSE 85; RESP 18
[2018-11-30] MEDS: IBUPROFEN 600 MG TAB PO SCH ×3 (06:05→17:39)
[2018-11-30] MEDS: MEROPENEM 1 GM/50ML(PMX) 50 ML IVPB SCH (06:05)
[2018-11-30] MEDS: LACTATED RINGER'S 1,000 ML IV SCH (07:00)
[2018-11-30 07:50] VITALS: BP 130/82; PULSE 90; RESP 17
[2018-11-30] MEDS ORDERED: MAGNESIUM OXIDE 400 MG TAB PO ONE (09:00)
[2018-11-30] MEDS: SENNA/DOCUSATE NA (8.6MG/50MG) TAB PO SCH (09:14)
[2018-11-30] MEDS: FERROUS GLUCONATE (EC) 325 MG TAB PO SCH (09:14)
[2018-11-30] MEDS: LEVALBUTEROL (NEB) 1.25 MG/0.5 ML AMP HHN SCH ×3 (09:20→20:00)
[2018-11-30] MEDS: BUDESONIDE (NEB) 0.5MG/2ML AMP HHN SCH ×2 (09:20→20:00)
[2018-11-30] MEDS: IPRATROPIUM (NEB) 0.5 MG/2.5 ML AMP HHN SCH ×3 (09:21→20:00)
[2018-11-30] MEDS ORDERED: LEVOFLOXACIN 750 MG TABLET PO SCH (14:00)
[2018-11-30 15:30] VITALS: BP 129/66; PULSE 85; RESP 17
[2018-11-30 19:40] VITALS: BP 121/68; PULSE 89; RESP 19
== END 2018-11-30 22:00 | disposition home or self-care (01) | DRG 787 ==
LOC: OBT 11:48 → L-D 11:48 → OBT 13:28 → L-D 11-24 00:22 → PP1 11-27 01:21
PROVIDERS: ADMIT Obstetrics & Gynecology; ATTEND Obstetrics & Gynecology
PROC: 10D00Z1 Extraction of Products of Conception, Low, Open Approach (ICD-10-PCS; principal; 2018-11-28)
DX: O61.9 Failed induction of labor, unspecified (principal); D62 Acute posthemorrhagic anemia; J91.0 Malignant pleural effusion; O99.53 Diseases of the respiratory system complicating the puerperium; O99.52 Diseases of the respiratory system complicating childbirth; O99.02 Anemia complicating childbirth; Z3A.39 39 weeks gestation of pregnancy; Z37.0 Single live birth
CPT/HCPCS: 36600; 71045; 71275; 76815; 76818; 80053; 80069; 81001; 81003; 82803; 82962; 83605; 83735; 83880; 84112; 84484; 84560; 85025; 85384; 85610; 85730; 86592; 86850; 86900; 86901; 88307; 93306; 93970; 94640; 99464; G0463; J0456; J0696; J1200; J1885; J2185; J2250; J2274; J2405; J2590; J2765; J3010; J7120; Q9967